=== PATIENT | male | born 1995 | race American Indian/Alaskan Native ===

== ENCOUNTER 2017-01-18 09:53 | Inpatient (IN) | payer SELFPAY ==
[2017-01-18 10:35] LABS: Basophils % (Auto) 0.3 % (0.0-1.8); Hematocrit 58.7 % (35.5-45.6); Hemoglobin 19.6 gm/dl (11.8-15.2); Mean Corpuscular HGB Conc 33 % (32-34); Mean Corpuscular Hemoglobin 28 pg (28-32); Mean Corpuscular Volume 82 fl (84-94); Platelet Count 322 K/mm3 (140-440); Red Blood Count 7.13 M/mm3 (3.65-5.03); Red Cell Distribution Width 13.9 % (13.2-15.2); White Blood Count 12.2 K/mm3 (4.5-11.0)
[2017-01-18 10:55] LABS: Albumin/Globulin Ratio 1.2 %; BUN/Creatinine Ratio 4.21; Bilirubin,Total 1.2 mg/dL (0.1-1.2); Chloride 81.5 mmol/L (98-107); Potassium 4.1 mmol/L (3.6-5.0); Total Protein 10.9 g/dL (6.3-8.2)
[2017-01-18] MEDS ORDERED: ZOFRAN ONE (11:31)
[2017-01-18] MEDS ORDERED: NACL 0.9% 1000 ML 1,000 ML ONE (11:31)
[2017-01-18] MEDS ORDERED: ZOFRAN IV ONE ×2 (11:55→13:48)
[2017-01-18] MEDS ORDERED: NACL 0.9% 1000 ML 1,000 ML IV ONE ×2 (11:56→13:48)
--- NOTE | 2017-01-18 12:29 | Emergency Department Report ---
ED General Adult HPI - General Chief complaint: Abdominal Pain Stated complaint: NAUSEA Time Seen by Provider: 01/18/17 12:24 Source: patient Mode of arrival: Ambulatory Limitations: No Limitations - History of Present Illness Initial comments: Patient states that he has had nausea vomiting since yesterday. He did note that his urine output was diminished since yesterday. He complains of tingling in his toes and fingers and some aching in general as well as some chronic lower back pain. He doesn't complain of any acute abdominal pain. He denies respiratory symptoms fever or chills. -: Gradual, days(s) Location: back Radiation: non-radiation Quality: aching Consistency: intermittent Improves with: none Worsens with: none Associated Symptoms: denies other symptoms Treatments Prior to Arrival: none - Related Data Home Medications Medication Instructions Recorded Confirmed Last Taken No Known Home Medications [No 01/18/17 01/18/17 Unknown Reported Home Medications] Allergies Allergy/AdvReac Type Severity Reaction Status Date / Time No Known Allergies Allergy Verified 01/18/17 10:09 ED Review of Systems ROS: Stated complaint: NAUSEA Other details as noted in HPI Constitutional: denies: chills, fever Eyes: denies: eye pain, eye discharge, vision change ENT: denies: ear pain, throat pain Respiratory: denies: cough, shortness of breath, wheezing Cardiovascular: denies: chest pain, palpitations Endocrine: no symptoms reported Gastrointestinal: nausea, vomiting. denies: abdominal pain, diarrhea Genitourinary: denies: urgency, dysuria Musculoskeletal: denies: back pain, joint swelling, arthralgia Skin: denies: rash, lesions Neurological: denies: headache, weakness, paresthesias Psychiatric: denies: anxiety, depression Hematological/Lymphatic: denies: easy bleeding, easy bruising ED Past Medical Hx - Past Medical History Previous Medical History?: No - Surgical History Past Surgical History?: No - Social History Smoking Status: Current Every Day Smoker Substance Use Type: None - Medications Home Medications: Home Medications Medication Instructions Recorded Confirmed Last Taken Type No Known Home Medications [No 01/18/17 01/18/17 Unknown History Reported Home Medications] ED Physical Exam - General Limitations: No Limitations General appearance: alert, anxious - Head Head exam: Present: atraumatic, normocephalic - Eye Eye exam: Present: normal appearance. Absent: scleral icterus - ENT ENT exam: Present: mucous membranes moist - Neck Neck exam: Present: normal inspection. Absent: tenderness, meningismus - Respiratory Respiratory exam: Present: normal lung sounds bilaterally. Absent: respiratory distress - Cardiovascular Cardiovascular Exam: Present: regular rate, normal rhythm. Absent: systolic murmur, diastolic murmur, rubs, gallop - GI/Abdominal GI/Abdominal exam: Present: soft, normal bowel sounds. Absent: distended, tenderness, guarding, rebound, rigid - Rectal Rectal exam: Present: deferred - Extremities Exam Extremities exam: Present: normal inspection - Back Exam Back exam: Present: normal inspection - Neurological Exam Neurological exam: Present: alert, oriented X3, CN II-XII intact. Absent: motor sensory deficit - Psychiatric Psychiatric exam: Present: normal affect, anxious - Skin Skin exam: Present: warm, dry, intact, normal color. Absent: rash ED Course Vital Signs 01/18/17 01/18/17 01/18/17 10:09 11:54 12:19 Temperature 97.6 F 98.5 F Pulse Rate 100 H 82 Respiratory 20 18 20 Rate Blood Pressure 122/93 Blood Pressure 116/66 [Left] O2 Sat by Pulse 100 100 100 Oximetry - Reevaluation(s) Reevaluation #1: Discussed with Dr. Raya. Admitted to the hospital service further care and evaluation. 01/18/17 16:47 01/18/17 16:51 ED Medical Decision Making - Lab Data Result diagrams: 01/18/17 10:22 01/18/17 10:22 Laboratory Results - last 24 hr 01/18/17 01/18/17 01/18/17 10:22 10:22 10:22 WBC 12.2 H RBC 7.13 H Hgb 19.6 H Hct 58.7 H MCV 82 L MCH 28 MCHC 33 RDW 13.9 Plt Count 322 Lymph % (Auto) 8.2 L [place] % (Auto) 5.0 Eos % (Auto) 0.0 Baso % (Auto) 0.3 Lymph # 1.0 L [place] # 0.6 Eos # 0.0 Baso # 0.0 Seg Neutrophils % 86.5 H Seg Neutrophils # 10.5 H Sodium 135 L Potassium 4.1 Chloride 81.5 L Carbon Dioxide 22 Anion Gap 36 BUN 24 H Creatinine 5.7 H Estimated GFR 12 BUN/Creatinine Ratio 4.21 Glucose 200 H Calcium 12.0 H Phosphorus 3.00 Total Bilirubin 1.20 1.20 Direct Bilirubin 0.2 Indirect Bilirubin 1.0 AST 32 33 ALT 39 38 Alkaline Phosphatase 72 70 Total Creatine Kinase 941 H CK-MB (CK-2) 10.0 H CK-MB (CK-2) Rel Index 1.0 Total Protein 10.9 H 11.0 H Albumin 6.0 H > 5.0 H Albumin/Globulin Ratio 1.2 0.0 Lipase 44 Critical care attestation.: If time is entered above; I have spent that time in minutes in the direct care of this critically ill patient, excluding procedure time. ED Disposition Clinical Impression: Acute renal failure Qualifiers: Acute renal failure type: unspecified Qualified Code(s): N17.9 - Acute kidney failure, unspecified Disposition: OP ADMIT IP TO THIS HOSP Is pt being admited?: Yes Does the pt Need Aspirin: No Condition: Stable Referrals: PRIMARY CARE, [Primary Care Provider] - 3-5 Days Time of Disposition: 16:54
--- NOTE | 2017-01-18 13:23 | Ultrasound Report ---
ULTRASOUND ABDOMEN COMPLETE: ULTRASOUND RENAL BILATERAL Technique: Transabdominal ultrasound with color Doppler interrogation. History: abdominal pain, renal failure. Findings: The liver is normal size, contour and echotexture. The gallbladder dimensions are within normal limits without intraluminal stone, wall thickening, or pericholecystic fluid. The CBD is normal caliber. The visualized portions of the pancreas including the head and proximal body are within normal limits. The right kidney measures 9.9 cm. The left kidney measures 9.3 cm. Both kidneys are slightly echogenic but no evidence for cyst, mass, calculus or hydronephrosis. The spleen and aorta are within normal limits. No aneurysmal dilatation is noted. No ascites. The bladder is unremarkable. IMPRESSION: Slightly echogenic kidneys consistent with nonspecific renal parenchymal disease. Otherwise, unremarkable exam of the abdomen.
--- NOTE | 2017-01-18 14:56 | XRay Report ---
CHEST ONE VIEW INDICATION: Difficulty breathing. COMPARISON: None similar. FINDINGS: Portable, single, frontal chest radiograph demonstrates normal cardiomediastinal silhouette. Clear lungs. Unremarkable bones. CONCLUSION: No acute disease in the chest. Thank you for the opportunity to participate in this patient's care.
[2017-01-18 15:00] LABS: Alanine Aminotransferase 38 units/L (7-56); Alkaline Phosphatase 70 units/L (35-129); Bilirubin,Direct 0.2 mg/dL (0-0.2); Creatine Kinase 941 units/L (55-170)
[2017-01-18 15:25] LABS: Albumin > 5.0 g/dL (3.9-5)
[2017-01-18] MEDS ORDERED: PEPCID IV ONE ×2 (16:12→16:39)
[2017-01-18] MEDS ORDERED: PERCOCET 5/325 PO PRN (19:29)
[2017-01-18] MEDS ORDERED: DILAUDID IV PRN (19:29)
[2017-01-18] MEDS ORDERED: TYLENOL PO PRN (19:29)
[2017-01-18] MEDS ORDERED: DULCOLAX PR PRN (19:29)
[2017-01-18] MEDS ORDERED: MILK OF MAGNESIA PO PRN (19:29)
[2017-01-18] MEDS ORDERED: AMBIEN PO PRN (19:29)
[2017-01-18] MEDS ORDERED: ZOFRAN IV PRN (19:29)
--- NOTE | 2017-01-18 19:29 | History and Physical Report ---
History of Present Illness Date of examination: 01/18/17 Date of admission: 01/18/17 Chief complaint: CC Nausea and vomiting for 1 day History of present illness: - History of Present Illness Initial comments: Patient states that he has had nausea vomiting since yesterday. He did note that his urine output was diminished since yesterday. He complains of tingling in his toes and fingers and some aching in general as well as some chronic lower back pain. He doesn't complain of any acute abdominal pain. He denies respiratory symptoms fever or chills. -: Gradual, days(s) Location: back Radiation: non-radiation Quality: aching Consistency: intermittent Improves with: none Worsens with: none Associated Symptoms: denies other symptoms Treatments Prior to Arrival: none Review of Systems Constitutional: denies: chills, fever Eyes: denies: eye pain, eye discharge, vision change ENT: denies: ear pain, throat pain Respiratory: denies: cough, shortness of breath, wheezing Cardiovascular: denies: chest pain, palpitations Endocrine: no symptoms reported Gastrointestinal: nausea, vomiting. abdominal pain, denies: diarrhea Genitourinary: denies: urgency, dysuria Musculoskeletal: denies: back pain, joint swelling, arthralgia Skin: denies: rash, lesions Neurological: denies: headache, weakness, paresthesias Psychiatric: denies: anxiety, depression Hematological/Lymphatic: denies: easy bleeding, easy bruising ED Past Medical Hx - Past Medical History Previous Medical History?: No - Surgical History Past Surgical History?: No - Social History Smoking Status: Current Every Day Smoker Substance Use Type: None - Medications Home Medications: Home Medications Medication Instructions Recorded Confirmed Last Taken Type No Known Home Medications [No 01/18/17 01/18/17 Unknown History Reported Home Medications] Medications and Allergies Allergies Allergy/AdvReac Type Severity Reaction Status Date / Time No Known Allergies Allergy Verified 01/18/17 10:09 Home Medications Medication Instructions Recorded Confirmed Last Taken Type No Known Home Medications [No 01/18/17 01/18/17 Unknown History Reported Home Medications] Exam - Constitutional Vitals: Temp Pulse Resp BP Pulse Ox 98.5 F 82 20 116/66 100 01/18/17 12:19 01/18/17 12:19 01/18/17 12:19 01/18/17 12:19 01/18/17 12:19 General appearance: Present: no acute distress, well-nourished - EENT Eyes: Present: PERRL ENT: hearing intact, clear oral mucosa - Neck Neck: Present: supple, normal ROM - Respiratory Respiratory effort: normal Respiratory: bilateral: CTA - Cardiovascular Heart rate: 80 Rhythm: regular Heart Sounds: Present: S1 & S2. Absent: rub, click - Extremities Extremities: no ischemia, pulses intact, pulses symmetrical, No edema Peripheral Pulses: within normal limits - Abdominal General gastrointestinal: Present: soft, non-tender, non-distended, normal bowel sounds Male genitourinary: Present: normal - Rectal Rectal Exam: deferred - Integumentary Integumentary: Present: clear, warm, dry - Musculoskeletal Musculoskeletal: gait normal, strength equal bilaterally - Psychiatric Psychiatric: appropriate mood/affect, intact judgment & insight - Neurologic Neurologic: CNII-XII intact, moves all extremities - Allied Health Allied health notes reviewed: nursing, case management Results - Labs CBC & Chem 7: 01/19/17 04:08 01/19/17 04:08 Labs: Laboratory Last Values WBC 12.2 K/mm3 (4.5-11.0) H 01/18/17 10:22 RBC 7.13 M/mm3 (3.65-5.03) H 01/18/17 10:22 Hgb 19.6 gm/dl (11.8-15.2) H 01/18/17 10:22 Hct 58.7 % (35.5-45.6) H 01/18/17 10:22 MCV 82 fl (84-94) L 01/18/17 10:22 MCH 28 pg (28-32) 01/18/17 10:22 MCHC 33 % (32-34) 01/18/17 10:22 RDW 13.9 % (13.2-15.2) 01/18/17 10:22 Plt Count 322 K/mm3 (140-440) 01/18/17 10:22 Lymph % (Auto) 8.2 % (13.4-35.0) L 01/18/17 10:22 [place] % (Auto) 5.0 % (0.0-7.3) 01/18/17 10:22 Eos % (Auto) 0.0 % (0.0-4.3) 01/18/17 10:22 Baso % (Auto) 0.3 % (0.0-1.8) 01/18/17 10:22 Lymph # 1.0 K/mm3 (1.2-5.4) L 01/18/17 10:22 [place] # 0.6 K/mm3 (0.0-0.8) 01/18/17 10:22 Eos # 0.0 K/mm3 (0.0-0.4) 01/18/17 10:22 Baso # 0.0 K/mm3 (0.0-0.1) 01/18/17 10:22 Seg Neutrophils % 86.5 % (40.0-70.0) H 01/18/17 10:22 Seg Neutrophils # 10.5 K/mm3 (1.8-7.7) H 01/18/17 10:22 Sodium 135 mmol/L (137-145) L 01/18/17 10:22 Potassium 4.1 mmol/L (3.6-5.0) 01/18/17 10:22 Chloride 81.5 mmol/L (98-107) L 01/18/17 10:22 Carbon Dioxide 22 mmol/L (22-30) 01/18/17 10:22 Anion Gap 36 mmol/L 01/18/17 10:22 BUN 24 mg/dL (9-20) H 01/18/17 10:22 Creatinine 5.7 mg/dL (0.8-1.5) H 01/18/17 10:22 Estimated GFR 12 ml/min 01/18/17 10:22 BUN/Creatinine Ratio 4.21 % 01/18/17 10:22 Glucose 200 mg/dL (75-100) H 01/18/17 10:22 Calcium 12.0 mg/dL (8.4-10.2) H 01/18/17 10:22 Phosphorus 3.00 mg/dL (2.5-4.5) 01/18/17 10:22 Total Bilirubin 1.20 mg/dL (0.1-1.2) 01/18/17 10:22 Direct Bilirubin 0.2 mg/dL (0-0.2) 01/18/17 10:22 Indirect Bilirubin 1.0 mg/dL 01/18/17 10:22 AST 33 units/L (5-40) 01/18/17 10:22 ALT 38 units/L (7-56) 01/18/17 10:22 Alkaline Phosphatase 70 units/L (35-129) 01/18/17 10:22 Total Creatine Kinase 941 units/L (55-170) H 01/18/17 10:22 CK-MB (CK-2) 10.0 ng/mL (0.0-4.0) H 01/18/17 10:22 CK-MB (CK-2) Rel Index 1.0 (0-4) 01/18/17 10:22 Total Protein 11.0 g/dL (6.3-8.2) H 01/18/17 10:22 Albumin > 5.0 g/dL (3.9-5) H 01/18/17 10:22 Albumin/Globulin Ratio 0.0 % 01/18/17 10:22 Lipase 44 units/L (13-60) 01/18/17 10:22 Short CBC 01/18/17 01/19/17 Range/Units 10:22 04:08 WBC 12.2 H 12.4 H (4.5-11.0) K/mm3 Hgb 19.6 H 16.8 H (11.8-15.2) gm/dl Hct 58.7 H 50.4 H D (35.5-45.6) % Plt Count 322 241 (140-440) K/mm3 BMP 01/18/17 01/19/17 10:22 04:08 Sodium 135 L 139 Potassium 4.1 3.9 Chloride 81.5 L 92.9 L Carbon Dioxide 22 25 BUN 24 H 34 H Creatinine 5.7 H 3.9 H Glucose 200 H 124 H Calcium 12.0 H 9.8 D Cardiac Enzymes 01/18/17 Range/Units 10:22 Total Creatine Kinase 941 H (55-170) units/L CK-MB (CK-2) 10.0 H (0.0-4.0) ng/mL Liver Function 01/18/17 01/18/17 01/19/17 Range/Units 10:22 10:22 04:08 Total Bilirubin 1.20 1.20 1.20 (0.1-1.2) mg/dL Direct Bilirubin 0.2 (0-0.2) mg/dL AST 32 33 34 (5-40) units/L ALT 39 38 27 (7-56) units/L Alkaline Phosphatase 72 70 51 (35-129) units/L Albumin 6.0 H > 5.0 H 4.6 (3.9-5) g/dL Urine 01/18/17 Range/Units 20:05 Urine Color [place] (Yellow) Urine pH 5.0 (5.0-7.0) Ur Specific [place] 1.023 (1.003-1.030) Urine Protein >500 (Negative) mg/dL Urine Glucose (UA) 50 (Negative) mg/dL - Imaging and Cardiology EKG: report reviewed Chest x-ray: report reviewed US - abdomen: report reviewed (Slightly Echogenic kidneys Size near normal) Assessment and Plan Advance Directives: Yes (Full code) VTE prophylaxis?: Chemical Plan of care discussed with patient/family: Yes - Patient Problems (1) Acute renal failure Current Visit: Yes Status: Acute Qualifiers: Acute renal failure type: with acute tubular necrosis Qualified Code(s): N17.0 - Acute kidney failure with tubular necrosis Plan to address problem: More in favor of acute on chronic renal failure IV fluids for now Nephrology consult initiated in case he needs Renal HD (2) Polycythemia Current Visit: Yes Status: Acute Plan to address problem: Probably sec to volume depletion Was vomiting with Nausea which maybe sec to Elevated creatine IV fluids for now (3) Hypercalcemia Current Visit: Yes Status: Acute Plan to address problem: Maybe sec to Volume contaction IV fluids for now. (4) DVT prophylaxis Current Visit: Yes Status: Acute Plan to address problem: on lovenox
[2017-01-18 20:09] LABS: Urine Drugs of Abuse Note Disclamer
[2017-01-18 20:33] LABS: Bilirubin,Urine NEG (Negative); Blood,Urine LG (Negative); Granular Casts,Urine 29 /LPF; Ketones,Urine TR mg/dL (Negative); Leukocyte Esterase,Urine NEG (Negative); Mucus,Urine 3+ /HPF; Nitrite,Urine NEG (Negative)
[2017-01-18 20:34] LABS: Protein,Urine >500 mg/dL (Negative)
[2017-01-18] MEDS: D5/0.45NS 1,000 ML IV SCH (21:32)
[2017-01-18] MEDS: HEPARIN SUB-Q SCH (21:33)
[2017-01-18] MEDS ORDERED: PEPCID IV SCH (22:00)
[2017-01-18] MEDS: ALUM-MAG HYDROX-SIMETH 200-200-20MG/5ML PO PRN (22:53)
[2017-01-18] MEDS: NOVOLOG SUB-Q SCH (23:00)
[2017-01-19 04:22] LABS: Basophils % (Auto) 0.2 % (0.0-1.8); Hematocrit 50.4 % (35.5-45.6); Hemoglobin 16.8 gm/dl (11.8-15.2); Mean Corpuscular HGB Conc 33 % (32-34); Mean Corpuscular Hemoglobin 28 pg (28-32); Mean Corpuscular Volume 83 fl (84-94); Platelet Count 241 K/mm3 (140-440); Red Blood Count 6.06 M/mm3 (3.65-5.03); Red Cell Distribution Width 14.2 % (13.2-15.2); White Blood Count 12.4 K/mm3 (4.5-11.0)
[2017-01-19 04:54] LABS: Albumin 4.6 g/dL (3.9-5); Albumin/Globulin Ratio 1.3 %; BUN/Creatinine Ratio 8.71; Bilirubin,Total 1.2 mg/dL (0.1-1.2); Calcium 9.8 mg/dL (8.4-10.2); Total Protein 8.2 g/dL (6.3-8.2)
[2017-01-19 04:55] LABS: Chloride 92.9 mmol/L (98-107); Potassium 3.9 mmol/L (3.6-5.0)
[2017-01-19] MEDS: D5/0.45NS 1,000 ML IV SCH (06:58)
[2017-01-19] MEDS: NOVOLOG SUB-Q SCH ×4 (08:07→22:11)
[2017-01-19] MEDS: HEPARIN SUB-Q SCH ×2 (09:14→22:08)
--- NOTE | 2017-01-19 09:21 | Consultation ---
History of Present Illness - Reason for Consult Consult date: 01/19/17 acute renal failure - History of Present Illness Patient is a 21 year old AAM without any significant medical history came to the ER with one day h/o intractable N & V. He had several episodes of vomiting at home. His PO intake has been poor and did noticed that his urine output was diminished. Associated symptoms include tingling in his toes and fingers and bodyache. Patient denies any diarrhea, abdominal pain, fever, dysuria or hematuria. His creatinine was 5.7 on admission and has improved to 2.6 today. Medications and Allergies Allergies Allergy/AdvReac Type Severity Reaction Status Date / Time No Known Allergies Allergy Verified 01/18/17 10:09 Home Medications Medication Instructions Recorded Confirmed Last Taken Type No Known Home Medications [No 01/18/17 01/18/17 Unknown History Reported Home Medications] Active Meds: Active Medications Acetaminophen (Tylenol) 650 mg PO Q4H PRN PRN Reason: Pain MILD(1-3)/Fever >100.5/ARCEO Al Hydrox/Mg Hydrox/Simethicone (Alum-Mag Hydrox-Simeth 477-105-57dm/5ml) 30 ml PO Q6HR PRN PRN Reason: Indigestion Last Admin: 01/18/17 22:53 Dose: 30 ml Bisacodyl (Dulcolax) 10 mg NM QDAY PRN PRN Reason: Constipation unrelieved by MOM Famotidine (Pepcid) 20 mg IV DAILY NNAMDI Heparin Sodium (Porcine) (Heparin) 5,000 unit SUB-Q Q12HR NNAMDI Last Admin: 01/19/17 09:14 Dose: 5,000 unit Hydromorphone HCl (Dilaudid) 0.5 mg IV Q3H PRN PRN Reason: Pain , Severe (7-10) Dextrose/Sodium Chloride (D5/0.45ns) 1,000 mls @ 100 mls/hr IV DIRECT NNAMDI Last Admin: 01/19/17 06:58 Dose: 100 mls/hr Insulin Aspart (Novolog) 0 units SUB-Q ACHS NNAMDI PRN Reason: Protocol Last Admin: 01/19/17 08:07 Dose: Not Given Magnesium Hydroxide (Milk Of Magnesia) 30 ml PO Q4H PRN PRN Reason: Constipation Ondansetron HCl (Zofran) 4 mg IV Q8H PRN PRN Reason: N/V unrelieved by Reglan Oxycodone/Acetaminophen (Percocet 5/325) 1 tab PO Q6H PRN PRN Reason: Pain, Moderate (4-6) Zolpidem Tartrate (Ambien) 5 mg PO QHS PRN PRN Reason: Insomnia Last Admin: 01/18/17 22:53 Dose: 5 mg Review of Systems Constitutional: no weight loss, no weight gain, no fever, no chills, no anorexia Ears, nose, mouth and throat: no sinus pain, no epistaxis Cardiovascular: no chest pain, no orthopnea, no syncope, no lightheadedness, no shortness of breath, no high blood pressure Respiratory: no cough Gastrointestinal: nausea, vomiting, no abdominal pain, no diarrhea, no hematemesis, no melena Genitourinary Male: no dysuria, no hematuria Rectal: no bleeding Musculoskeletal: no neck stiffness Integumentary: no rash, no wounds, no jaundice Neurological: tingling, no transient paralysis, no paralysis, no seizures, no syncope Psychiatric: no disorientation Endocrine: no weight change Hematologic/Lymphatic: no easy bruising, no easy bleeding Exam - Vital Signs Vital signs: Vital Signs Temp Pulse Resp BP Pulse Ox 97.6 F 100 H 20 122/93 100 01/18/17 10:09 01/18/17 10:09 01/18/17 10:09 01/18/17 10:09 01/18/17 10:09 - General Appearance General appearance: well-developed, well-nourished, appears stated age, other ( no distress) EENT: ATNC, PERRL, mucous membranes moist, hearing intact, vision intact Neck: Present: neck supple Respiratory: Clear to Ascultation Heart: regular, S1S2, no murmurs Gastrointestinal: Present: normoactive bowel sounds. Absent: tenderness, distended Integumentary: no rash Neurologic: no focal deficit, no asterixis, alert and oriented x3, CN 3-12 intact Musculoskeletal: Present: other (no edema) Psychiatric: mood/affect appropriate, cooperative Results - Lab Results 01/20/17 04:38 01/20/17 04:38 Most recent lab results Calcium 9.8 mg/dL (8.4-10.2) D 01/19/17 04:08 Phosphorus 3.00 mg/dL (2.5-4.5) 01/18/17 10:22 - Image Kidney/bladder ultrasound: report reviewed Assessment and Plan - Patient Problems (1) ARNIE (acute kidney injury) Current Visit: Yes Status: Acute Plan to address problem: Hemodynamic ARNIE in the setting of volume depletion. Renal function is improving. Continue IV fluids. (2) Hypercalcemia Current Visit: Yes Status: Acute Plan to address problem: Secondary to volume depletion. Improved now. (3) Volume depletion Current Visit: Yes Status: Acute Plan to address problem: Continue IV fluids. (4) Intractable vomiting with nausea Current Visit: Yes Status: Acute Qualifiers: Vomiting type: V Plan to address problem: Improved.
[2017-01-19] MEDS ORDERED: PEPCID IV SCH (10:00)
--- NOTE | 2017-01-19 10:07 | Admit Criteria Form ---
Admission Criteria Documentation: UROLOGIC DISEASE G Clinical Indications for Admission to Inpatient Care (Place ' X' for any and all applicable criteria): Hospital admission is needed for appropriate care of the patient because of 1 or more of the following: [ ]I. New-onset Reduced urine output, or hydronephrosis remaining after emergency or observation level care (as appropriate ) [X ]II. Renal disease needing inpatient care indicated by 1 or more of the following(2)(3)(4): [X ]a) Acute renal failure [ ]b) Significant uremic complications [ ]c) Acute kidney injury (that does not qualify as Acute renal failure ) requiring inpatient care indicated by ALL of the following(5)(6)(7)(8) (9): [ ]i) Worsening clinical status (eg, rising creatinine) despite outpatient and observation care treatment (eg, hydration) [ ]ii) Acute kidney injury indicated by 1 or more of the following: [ ]1) 2-fold or more rise in serum creatinine from baseline [ ]2) Reduction of more than 50% in estimated glomerular filtration rate from baseline [ ]3) Urine output less than 0.5 mL/kg/hr for 12 hours despite adequate volume status [ ]d) Systemic cause (eg, Goodpasture syndrome ) needing inpatient care [ ]e) Rapidly progressive renal disease needing inpatient care (eg, plasmapheresis, immunosuppression ) Anasarca needing inpatient care [ ]f) Hemoptysis [ ]g) Hemolysis, thrombosis, or infraction [ ]h) Anasarca needing inpatient care [ ]III. New-onset or uncontrolled nephrogenic diabetes insipidus [ ]IV. Urologic infection requiring inpatient care as indicated by 1 or more of the following(10)(11)(12): [ ]a) Hemodynamic instability [ ]b) Dehydration that is severe or persistent [ ]c) Failure of outpatient treatment [ ]d) Mayi's gangrene [ ]e) Urinary obstruction [ ]f) Immunocompromised state (eg, chronic steroid use ) [ ]g) Known renal or urologic abnormalities(eg, indwelling catheter, structural abnormalities ) [ ]h) Recent urologic manipulation or procedure Urinary obstruction [ ]i) Abscess requiring drainage Immunocompromised state [ ]V. Acute urinary retention requiring inpatient management as indicated by ANY ONE of the following(1)(13): [ ]a) Retention cannot be alleviated via emergency or observation level care (eg, urinary catheter placement) [ ]b) Hemodynamic instability [ ]c) Acute neurologic etiology (eg, cauda equina) [ ]d) Dehydration or other complications not manageable with emergency or observation level care [ ]e) Acute kidney injury (that does not qualify as Acute renal failure ) requiring inpatient care indicated by ALL of the following(5)(6)(7)(8) (9): [ ]i) Acute kidney injury indicated by ANY ONE of the following: [ ]1) 2-fold or more rise in serum creatinine from baseline [ ]2) Reduction of more than 50% in estimated glomerular filtration rate from baseline [ ]ii) Worsening clinical status (eg, rising creatinine) despite outpatient and observation care treatment (eg, hydration) [ ]. Gross hematuria requiring inpatient management as indicated by ANY ONE of the following(1)(2): [ ]a) Evidence of renal obstruction [ ]b) Reduced urine output [ ]c) Clot retention after urinary catheterization and irrigation [ ]d) Severe Anemia [ ]e) Systemic cause needing inpatient treatment (eg, Goodpasture syndrome) [ ]VII. Priapism not responsive to emergency or observation care treatment [ ]VII. Scrotal, testicular, or epididymal disorder requiring inpatient care indicated by 1 or more of the following(1)(14)(15)(16): [ ]a) Scrotal edema or infection not manageable with emergency or observation level care [ ]b) Orchitis not manageable with emergency or observation level care [ ]c) Epididymitis not manageable with emergency or observation level of care [ ]d) Other scrotal, testicular, or epididymal disorder (eg, infection, inflammation) not manageable with emergency or observation level care [ ]IX. Complications of transplanted kidney indicated by 1 or more of the following [ ]a) Acute graft rejection requiring inpatient management (eg, intravenous immunosuppression) [ ]b) Acute kidney injury indicated by ALL of the following i) Acute kidney injury indicated by 1 or more of the following 1) 2-fold or more rise in serum creatinine from baseline 2) Reduction of more than 50% in estimated glomerular filtration rate from baseline 3) Urine output less than 0.5 mL/kg/hr for 12 hours despite adequate volume status ii) Kidney injury too severe or not responsive to outpatient and observation care treatment (eg, hydration) [ ]c) Infection requiring inpatient management (eg, Hemodynamic instability, need for intravenous antimicrobial treatment) [ ]d) Other complication of transplanted kidney requiring patient management (eg, severe diarrhea leading to malabsorption) [ ]X. Trauma to renal, genital, or urologic system requiring inpatient medical care [ ]XI. Urologic Disease condition, symptom, or finding for which emergency and observation care have failed or are not considered appropriate. The original [employer] content created by [employer] has been revised. The portions of the content which have been revised are identified through the use of italic text or in bold, and [facility] has neither reviewed nor approved the modified material. All other unmodified content is copyright [facility]. Please see references footnoted in the original [facility] edition 2016 Admission Criteria Met: Yes
[2017-01-19 17:15] LABS: BUN/Creatinine Ratio 11.53; Calcium 9.6 mg/dL (8.4-10.2); Chloride 90.5 mmol/L (98-107); Potassium 3.7 mmol/L (3.6-5.0)
[2017-01-19] MEDS: ALUM-MAG HYDROX-SIMETH 200-200-20MG/5ML PO PRN (18:13)
--- NOTE | 2017-01-19 19:20 | Progress Note ---
Assessment and Plan Assessment and plan: 21 yo AAM with no past medical history presented for intractable nausea and vomiting x1 day 1. Acute renal failure Likely due to vasomotor nephropathy secondary to dehydration with volume depletion Continue IV fluids Improving Monitoring BUN/creatinine and electrolytes Nephrology following 2. Hypercalcemia Secondary to dehydration and acute kidney injury Continue IV fluids 3. Rhabdomyolysis Continue IV fluids and trend CPK 4. Polycythemia Likely secondary to dehydration and volume depletion Monitor 5. Dehydration Secondary to vomiting Continue IV fluids 6. Nausea and vomiting with volume depletion Continue IV fluids 7. Drug use Denied any drug use, but UDS positive for marijuana Counseling regarding importance of quitting 8. Tobacco abuse Counseling regarding importance of quitting 9. DVT prophylaxis Heparin subcutaneous History Interval history: feeling better, weak, but no specific complaints Hospitalist Physical - Constitutional Vitals: Temp Pulse Resp BP Pulse Ox 97.7 F 71 18 109/59 100 01/19/17 11:00 01/19/17 11:00 01/19/17 11:00 01/19/17 11:00 01/19/17 11:00 General appearance: Present: no acute distress, well-nourished - EENT Eyes: Present: PERRL, EOM intact. Absent: scleral icterus, conjunctival injection - Neck Neck: Present: supple, normal ROM. Absent: masses or JVD - Respiratory Respiratory effort: normal Respiratory: bilateral: CTA, negative: rhonchi, wheezing - Cardiovascular Rhythm: regular Heart Sounds: Present: S1 & S2. Absent: systolic murmur - Extremities Extremities: no ischemia - Abdominal General gastrointestinal: soft, non-tender, non-distended, normal bowel sounds - Psychiatric Psychiatric: cooperative - Neurologic Neurologic: CNII-XII intact, no focal deficits Results - Labs CBC & Chem 7: 01/20/17 04:38 01/21/17 04:35 Labs: Laboratory Last Values WBC 12.4 K/mm3 (4.5-11.0) H 01/19/17 04:08 RBC 6.06 M/mm3 (3.65-5.03) H 01/19/17 04:08 Hgb 16.8 gm/dl (11.8-15.2) H 01/19/17 04:08 Hct 50.4 % (35.5-45.6) H D 01/19/17 04:08 MCV 83 fl (84-94) L 01/19/17 04:08 MCH 28 pg (28-32) 01/19/17 04:08 MCHC 33 % (32-34) 01/19/17 04:08 RDW 14.2 % (13.2-15.2) 01/19/17 04:08 Plt Count 241 K/mm3 (140-440) 01/19/17 04:08 Lymph % (Auto) 8.8 % (13.4-35.0) L 01/19/17 04:08 Lee % (Auto) 13.8 % (0.0-7.3) H 01/19/17 04:08 Eos % (Auto) 0.0 % (0.0-4.3) 01/19/17 04:08 Baso % (Auto) 0.2 % (0.0-1.8) 01/19/17 04:08 Lymph # 1.1 K/mm3 (1.2-5.4) L 01/19/17 04:08 Lee # 1.7 K/mm3 (0.0-0.8) H 01/19/17 04:08 Eos # 0.0 K/mm3 (0.0-0.4) 01/19/17 04:08 Baso # 0.0 K/mm3 (0.0-0.1) 01/19/17 04:08 Seg Neutrophils % 77.2 % (40.0-70.0) H 01/19/17 04:08 Seg Neutrophils # 9.6 K/mm3 (1.8-7.7) H 01/19/17 04:08 Sodium 136 mmol/L (137-145) L 01/19/17 13:00 Potassium 3.7 mmol/L (3.6-5.0) 01/19/17 13:00 Chloride 90.5 mmol/L (98-107) L 01/19/17 13:00 Carbon Dioxide 28 mmol/L (22-30) 01/19/17 13:00 Anion Gap 21 mmol/L 01/19/17 13:00 BUN 30 mg/dL (9-20) H 01/19/17 13:00 Creatinine 2.6 mg/dL (0.8-1.5) H 01/19/17 13:00 Estimated GFR 37 ml/min 01/19/17 13:00 BUN/Creatinine Ratio 11.53 % 01/19/17 13:00 Glucose 85 mg/dL (75-100) 01/19/17 13:00 POC Glucose 102 (70-105) 01/19/17 18:02 Hemoglobin A1c 5.5 % (4-6) 01/18/17 10:22 Calcium 9.6 mg/dL (8.4-10.2) 01/19/17 13:00 Phosphorus 3.00 mg/dL (2.5-4.5) 01/18/17 10:22 Total Bilirubin 1.20 mg/dL (0.1-1.2) 01/19/17 04:08 Direct Bilirubin 0.2 mg/dL (0-0.2) 01/18/17 10:22 Indirect Bilirubin 1.0 mg/dL 01/18/17 10:22 AST 34 units/L (5-40) 01/19/17 04:08 ALT 27 units/L (7-56) 01/19/17 04:08 Alkaline Phosphatase 51 units/L (35-129) 01/19/17 04:08 Total Creatine Kinase 941 units/L (55-170) H 01/18/17 10:22 CK-MB (CK-2) 10.0 ng/mL (0.0-4.0) H 01/18/17 10:22 CK-MB (CK-2) Rel Index 1.0 (0-4) 01/18/17 10:22 Total Protein 8.2 g/dL (6.3-8.2) D 01/19/17 04:08 Albumin 4.6 g/dL (3.9-5) 01/19/17 04:08 Albumin/Globulin Ratio 1.3 % 01/19/17 04:08 Lipase 44 units/L (13-60) 01/18/17 10:22 Urine Color Yeimi (Yellow) 01/18/17 20:05 Urine Turbidity Turbid (Clear) 01/18/17 20:05 Urine pH 5.0 (5.0-7.0) 01/18/17 20:05 Ur Specific [place] 1.023 (1.003-1.030) 01/18/17 20:05 Urine Protein >500 mg/dL (Negative) 01/18/17 20:05 Urine Glucose (UA) 50 mg/dL (Negative) 01/18/17 20:05 Urine Ketones Tr mg/dL (Negative) 01/18/17 20:05 Urine Blood Lg (Negative) 01/18/17 20:05 Urine Nitrite Neg (Negative) 01/18/17 20:05 Urine Bilirubin Neg (Negative) 01/18/17 20:05 Urine Urobilinogen 2.0 mg/dL (<2.0) 01/18/17 20:05 Ur Leukocyte Esterase Neg (Negative) 01/18/17 20:05 Urine WBC (Auto) 8.0 /HPF (0.0-6.0) H 01/18/17 20:05 Urine RBC (Auto) 2.0 /HPF (0.0-6.0) 01/18/17 20:05 Calcium Oxalate Crystal 2+ 01/18/17 20:05 Amorphous Crystals 1+ 01/18/17 20:05 Hyaline Casts 10 /LPF 01/18/17 20:05 Granular Casts 29 /LPF 01/18/17 20:05 Urine Mucus 3+ /HPF 01/18/17 20:05 Urine Opiates Screen Presumptive negative 01/18/17 20:05 Urine Methadone Screen Presumptive negative 01/18/17 20:05 Ur Barbiturates Screen Presumptive negative 01/18/17 20:05 Ur Phencyclidine Scrn Presumptive negative 01/18/17 20:05 Ur Amphetamines Screen Presumptive negative 01/18/17 20:05 U Benzodiazepines Scrn Presumptive negative 01/18/17 20:05 Urine Cocaine Screen Presumptive negative 01/18/17 20:05 U Marijuana (THC) Screen Presumptive positive 01/18/17 20:05 Drugs of Abuse Note Disclamer 01/18/17 20:05
[2017-01-20 05:15] LABS: Hematocrit 46.8 % (35.5-45.6); Hemoglobin 15.3 gm/dl (11.8-15.2); Mean Corpuscular HGB Conc 33 % (32-34); Mean Corpuscular Hemoglobin 28 pg (28-32); Mean Corpuscular Volume 84 fl (84-94); Platelet Count 208 K/mm3 (140-440); Red Blood Count 5.59 M/mm3 (3.65-5.03); Red Cell Distribution Width 14.3 % (13.2-15.2); White Blood Count 6.5 K/mm3 (4.5-11.0)
[2017-01-20 05:35] LABS: Alanine Aminotransferase 27 units/L (7-56); Albumin 4.1 g/dL (3.9-5); Albumin/Globulin Ratio 1.2 %; Alkaline Phosphatase 45 units/L (35-129); Anion Gap 18 mmol/L; BUN/Creatinine Ratio 16.15; Blood Urea Nitrogen 21 mg/dL (9-20); Calcium 9.4 mg/dL (8.4-10.2); Carbon Dioxide 28 mmol/L (22-30); Chloride 93.2 mmol/L (98-107); Creatine Kinase 1133 units/L (55-170); Glucose 83 mg/dL (75-100); Potassium 3.8 mmol/L (3.6-5.0); Sodium 135 mmol/L (137-145); Total Protein 7.4 g/dL (6.3-8.2)
[2017-01-20 06:10] LABS: Basophils % (Manual) 0 % (0.0-1.8); Blastocytes % (Manual) 0 %
[2017-01-20 06:11] LABS: Anisocytosis 1+; Diff Status Complete; Hypochromasia 1+
[2017-01-20] MEDS: D5/0.45NS 1,000 ML IV SCH ×2 (06:21→19:51)
[2017-01-20] MEDS: NOVOLOG SUB-Q SCH ×4 (08:17→22:47)
--- NOTE | 2017-01-20 08:44 | Progress Note ---
Assessment and Plan - Patient Problems (1) ARNIE (acute kidney injury) Current Visit: Yes Status: Acute Plan to address problem: Hemodynamic ARNIE in the setting of volume depletion. Renal function has improved. Advised to drink adequate fluids. Will sign off. (2) Hypercalcemia Current Visit: Yes Status: Acute Plan to address problem: Secondary to volume depletion. Improved now. (3) Volume depletion Current Visit: Yes Status: Acute Plan to address problem: Continue IV fluids. (4) Intractable vomiting with nausea Current Visit: Yes Status: Acute Qualifiers: Vomiting type: V Plan to address problem: Improved. Subjective Date of service: 01/20/17 Interval history: Patient is feeling better. Objective - Vital Signs Vital signs: Vital Signs - 12hr 01/19/17 01/19/17 01/19/17 21:01 22:00 22:37 Temperature 97.9 F Pulse Rate 69 Respiratory 22 18 18 Rate Respiratory 18 Rate [Bilateral Hip] Blood Pressure 125/65 O2 Sat by Pulse 98 Oximetry 01/19/17 01/20/17 01/20/17 23:37 00:35 04:00 Temperature 98.7 F 98.4 F Pulse Rate 65 63 Respiratory 17 20 20 Rate Respiratory Rate [Bilateral Hip] Blood Pressure 108/50 115/56 O2 Sat by Pulse 97 99 Oximetry - General Appearance General appearance: well-developed, well-nourished, appears stated age, other ( no distress) EENT: ATNC, PERRL, mucous membranes moist, hearing intact, vision intact Neck: supple Respiratory: Present: Clear to Ascultation Cardiology: regular, S1S2, no murmurs Gastrointestinal: normoactive bowel sounds, no tenderness, no distended Integumentary: no rash Neurologic: no focal deficit, no asterixis, alert and oriented x3, CN 3-12 intact Musculoskeletal: other (no edema) Psychiatric: mood/affect appropriate, cooperative - Lab 01/20/17 04:38 01/20/17 04:38 Most recent lab results Calcium 9.4 mg/dL (8.4-10.2) 01/20/17 04:38 Phosphorus 3.30 mg/dL (2.5-4.5) 01/20/17 04:38 Magnesium 2.30 mg/dL (1.7-2.3) 01/20/17 04:38
[2017-01-20] MEDS: HEPARIN SUB-Q SCH ×2 (09:42→22:48)
[2017-01-20] MEDS: PEPCID IV SCH ×2 (09:43→22:50)
--- NOTE | 2017-01-20 20:35 | Progress Note ---
Assessment and Plan Assessment and plan: 21 yo AAM with no past medical history presented for intractable nausea and vomiting x1 day 1. Acute renal failure Likely due to vasomotor nephropathy secondary to dehydration with volume depletion Continue IV fluids Improving Monitoring BUN/creatinine and electrolytes Nephrology following 2. Hypercalcemia Secondary to dehydration and acute kidney injury Resolved with IV fluids 3. Rhabdomyolysis CPK trending down Continue IV fluids 4. Polycythemia Likely secondary to dehydration and volume depletion Monitor 5. Dehydration Secondary to vomiting Continue IV fluids 6. Nausea and vomiting with volume depletion Resolved 7. Drug use Denied any drug use, but UDS positive for marijuana Counseling regarding importance of quitting 8. Tobacco abuse Counseling regarding importance of quitting 9. DVT prophylaxis Heparin subcutaneous History Interval history: doing well, no complaints Hospitalist Physical - Constitutional Vitals: Temp Pulse Resp BP Pulse Ox 98.1 F 72 20 134/81 98 01/20/17 16:00 01/20/17 19:14 01/20/17 16:00 01/20/17 16:00 01/20/17 16:00 General appearance: Present: no acute distress, well-nourished - EENT Eyes: Present: PERRL, EOM intact - Neck Neck: Present: supple, normal ROM. Absent: masses or JVD - Respiratory Respiratory effort: normal Respiratory: bilateral: CTA, negative: rhonchi, wheezing - Cardiovascular Rhythm: regular Heart Sounds: Present: S1 & S2. Absent: systolic murmur - Extremities Extremities: no ischemia - Abdominal General gastrointestinal: soft, non-tender, non-distended, normal bowel sounds - Psychiatric Psychiatric: cooperative - Neurologic Neurologic: CNII-XII intact, no focal deficits Results - Labs CBC & Chem 7: 01/20/17 04:38 01/21/17 04:35 Labs: Laboratory Last Values WBC 6.5 K/mm3 (4.5-11.0) 01/20/17 04:38 RBC 5.59 M/mm3 (3.65-5.03) H 01/20/17 04:38 Hgb 15.3 gm/dl (11.8-15.2) H 01/20/17 04:38 Hct 46.8 % (35.5-45.6) H 01/20/17 04:38 MCV 84 fl (84-94) 01/20/17 04:38 MCH 28 pg (28-32) 01/20/17 04:38 MCHC 33 % (32-34) 01/20/17 04:38 RDW 14.3 % (13.2-15.2) 01/20/17 04:38 Plt Count 208 K/mm3 (140-440) 01/20/17 04:38 Lymph % (Auto) 8.8 % (13.4-35.0) L 01/19/17 04:08 [place] % (Auto) Campground [employer] 01/20/17 04:38 Eos % (Auto) 0.0 % (0.0-4.3) 01/19/17 04:08 Baso % (Auto) 0.2 % (0.0-1.8) 01/19/17 04:08 Lymph # 1.1 K/mm3 (1.2-5.4) L 01/19/17 04:08 [place] # 1.7 K/mm3 (0.0-0.8) H 01/19/17 04:08 Eos # 0.0 K/mm3 (0.0-0.4) 01/19/17 04:08 Baso # 0.0 K/mm3 (0.0-0.1) 01/19/17 04:08 Add Manual Diff Complete 01/20/17 04:38 Total Counted 100 01/20/17 04:38 Seg Neutrophils % 77.2 % (40.0-70.0) H 01/19/17 04:08 Seg Neuts % (Manual) 63.0 % (40.0-70.0) 01/20/17 04:38 Band Neutrophils % 2.0 % 01/20/17 04:38 Lymphocytes % (Manual) 18.0 % (13.4-35.0) 01/20/17 04:38 Reactive Lymphs % (Man) 0 % 01/20/17 04:38 Monocytes % (Manual) 14.0 % (0.0-7.3) H 01/20/17 04:38 Eosinophils % (Manual) 1.0 % (0.0-4.3) 01/20/17 04:38 Basophils % (Manual) 0 % (0.0-1.8) 01/20/17 04:38 Metamyelocytes % 2.0 % 01/20/17 04:38 Myelocytes % 0 % 01/20/17 04:38 Promyelocytes % 0 % 01/20/17 04:38 Blast Cells % 0 % 01/20/17 04:38 Nucleated RBC % Not Reportable 01/20/17 04:38 Seg Neutrophils # 9.6 K/mm3 (1.8-7.7) H 01/19/17 04:08 Seg Neutrophils # Man 4.1 K/mm3 (1.8-7.7) 01/20/17 04:38 Band Neutrophils # 0.1 K/mm3 01/20/17 04:38 Lymphocytes # (Manual) 1.2 K/mm3 (1.2-5.4) 01/20/17 04:38 Abs React Lymphs (Man) 0.0 K/mm3 01/20/17 04:38 Monocytes # (Manual) 0.9 K/mm3 (0.0-0.8) H 01/20/17 04:38 Eosinophils # (Manual) 0.1 K/mm3 (0.0-0.4) 01/20/17 04:38 Basophils # (Manual) 0.0 K/mm3 (0.0-0.1) 01/20/17 04:38 Metamyelocytes # 0.1 K/mm3 01/20/17 04:38 Myelocytes # 0.0 K/mm3 01/20/17 04:38 Promyelocytes # 0.0 K/mm3 01/20/17 04:38 Blast Cells # 0.0 K/mm3 01/20/17 04:38 WBC Morphology Not Reportable 01/20/17 04:38 Hypersegmented Neuts Not Reportable 01/20/17 04:38 Hyposegmented Neuts Not Reportable 01/20/17 04:38 Hypogranular Neuts Not Reportable 01/20/17 04:38 Smudge Cells Not Reportable 01/20/17 04:38 Toxic Granulation Not Reportable 01/20/17 04:38 Toxic Vacuolation Not Reportable 01/20/17 04:38 Dohle Bodies Not Reportable 01/20/17 04:38 Pelger-Huet Anomaly Not Reportable 01/20/17 04:38 Naima Rods Not Reportable 01/20/17 04:38 Platelet Estimate Appears normal 01/20/17 04:38 Clumped Platelets Not Reportable 01/20/17 04:38 Plt Clumps, EDTA Not Reportable 01/20/17 04:38 Large Platelets Not Reportable 01/20/17 04:38 Giant Platelets Not Reportable 01/20/17 04:38 Platelet Satelliting Not Reportable 01/20/17 04:38 Plt Morphology Comment Not Reportable 01/20/17 04:38 RBC Morphology Not Reportable 01/20/17 04:38 Dimorphic RBCs Not Reportable 01/20/17 04:38 Polychromasia Not Reportable 01/20/17 04:38 Hypochromasia 1+ 01/20/17 04:38 Poikilocytosis Not Reportable 01/20/17 04:38 Anisocytosis 1+ 01/20/17 04:38 Microcytosis Not Reportable 01/20/17 04:38 Macrocytosis Not Reportable 01/20/17 04:38 Spherocytes Not Reportable 01/20/17 04:38 Pappenheimer Bodies Not Reportable 01/20/17 04:38 Sickle Cells Not Reportable 01/20/17 04:38 Target Cells Not Reportable 01/20/17 04:38 Tear Drop Cells Not Reportable 01/20/17 04:38 Ovalocytes Not Reportable 01/20/17 04:38 Helmet Cells Not Reportable 01/20/17 04:38 [place] Bodies Not Reportable 01/20/17 04:38 Tichnor Rings Not Reportable 01/20/17 04:38 Hope Cells Not Reportable 01/20/17 04:38 Bite Cells Not Reportable 01/20/17 04:38 Crenated Cell Not Reportable 01/20/17 04:38 Elliptocytes Not Reportable 01/20/17 04:38 Acanthocytes (Spur) Not Reportable 01/20/17 04:38 Rouleaux Not Reportable 01/20/17 04:38 Hemoglobin C Crystals Not Reportable 01/20/17 04:38 Schistocytes Not Reportable 01/20/17 04:38 Malaria parasites Not Reportable 01/20/17 04:38 [place]ider Bodies Not Reportable 01/20/17 04:38 Hem Pathologist Commnt No 01/20/17 04:38 Sodium 135 mmol/L (137-145) L 01/20/17 04:38 Potassium 3.8 mmol/L (3.6-5.0) 01/20/17 04:38 Chloride 93.2 mmol/L (98-107) L 01/20/17 04:38 Carbon Dioxide 28 mmol/L (22-30) 01/20/17 04:38 Anion Gap 18 mmol/L 01/20/17 04:38 BUN 21 mg/dL (9-20) H 01/20/17 04:38 Creatinine 1.3 mg/dL (0.8-1.5) 01/20/17 04:38 Estimated GFR > 60 ml/min 01/20/17 04:38 BUN/Creatinine Ratio 16.15 % 01/20/17 04:38 Glucose 83 mg/dL (75-100) 01/20/17 04:38 POC Glucose 88 (70-105) 01/20/17 16:43 Hemoglobin A1c 5.5 % (4-6) 01/18/17 10:22 Calcium 9.4 mg/dL (8.4-10.2) 01/20/17 04:38 Phosphorus 3.30 mg/dL (2.5-4.5) 01/20/17 04:38 Magnesium 2.30 mg/dL (1.7-2.3) 01/20/17 04:38 Total Bilirubin 1.30 mg/dL (0.1-1.2) H 01/20/17 04:38 Direct Bilirubin 0.2 mg/dL (0-0.2) 01/18/17 10:22 Indirect Bilirubin 1.0 mg/dL 01/18/17 10:22 AST 30 units/L (5-40) 01/20/17 04:38 ALT 27 units/L (7-56) 01/20/17 04:38 Alkaline Phosphatase 45 units/L (35-129) 01/20/17 04:38 Total Creatine Kinase 1133 units/L (55-170) H 01/20/17 04:38 CK-MB (CK-2) 10.0 ng/mL (0.0-4.0) H 01/18/17 10:22 CK-MB (CK-2) Rel Index 1.0 (0-4) 01/18/17 10:22 Total Protein 7.4 g/dL (6.3-8.2) 01/20/17 04:38 Albumin 4.1 g/dL (3.9-5) 01/20/17 04:38 Albumin/Globulin Ratio 1.2 % 01/20/17 04:38 Lipase 44 units/L (13-60) 01/18/17 10:22 Urine Color Yeimi (Yellow) 01/18/17 20:05 Urine Turbidity Turbid (Clear) 01/18/17 20:05 Urine pH 5.0 (5.0-7.0) 01/18/17 20:05 Ur Specific [place] 1.023 (1.003-1.030) 01/18/17 20:05 Urine Protein >500 mg/dL (Negative) 01/18/17 20:05 Urine Glucose (UA) 50 mg/dL (Negative) 01/18/17 20:05 Urine Ketones Tr mg/dL (Negative) 01/18/17 20:05 Urine Blood Lg (Negative) 01/18/17 20:05 Urine Nitrite Neg (Negative) 01/18/17 20:05 Urine Bilirubin Neg (Negative) 01/18/17 20:05 Urine Urobilinogen 2.0 mg/dL (<2.0) 01/18/17 20:05 Ur Leukocyte Esterase Neg (Negative) 01/18/17 20:05 Urine WBC (Auto) 8.0 /HPF (0.0-6.0) H 01/18/17 20:05 Urine RBC (Auto) 2.0 /HPF (0.0-6.0) 01/18/17 20:05 Calcium Oxalate Crystal 2+ 01/18/17 20:05 Amorphous Crystals 1+ 01/18/17 20:05 Hyaline Casts 10 /LPF 01/18/17 20:05 Granular Casts 29 /LPF 01/18/17 20:05 Urine Mucus 3+ /HPF 01/18/17 20:05 Urine Opiates Screen Presumptive negative 01/18/17 20:05 Urine Methadone Screen Presumptive negative 01/18/17 20:05 Ur Barbiturates Screen Presumptive negative 01/18/17 20:05 Ur Phencyclidine Scrn Presumptive negative 01/18/17 20:05 Ur Amphetamines Screen Presumptive negative 01/18/17 20:05 U Benzodiazepines Scrn Presumptive negative 01/18/17 20:05 Urine Cocaine Screen Presumptive negative 01/18/17 20:05 U Marijuana (THC) Screen Presumptive positive 01/18/17 20:05 Drugs of Abuse Note Disclamer 01/18/17 20:05
[2017-01-20] MEDS: NACL 0.9% 1000 ML 1,000 ML IV SCH (22:47)
[2017-01-21 05:27] LABS: Anion Gap 17 mmol/L; BUN/Creatinine Ratio 16.66; Blood Urea Nitrogen 15 mg/dL (9-20); Calcium 9.3 mg/dL (8.4-10.2); Carbon Dioxide 26 mmol/L (22-30); Chloride 98.5 mmol/L (98-107); Creatine Kinase 517 units/L (55-170); Glucose 84 mg/dL (75-100); Sodium 137 mmol/L (137-145)
[2017-01-21] MEDS: NACL 0.9% 1000 ML 1,000 ML IV SCH (06:28)
[2017-01-21] MEDS: NOVOLOG SUB-Q SCH ×2 (08:16→14:10)
--- NOTE | 2017-01-21 09:50 | Discharge Summary ---
Providers - Providers Date of Admission: 01/18/17 19:30 Date of discharge: 01/21/17 Attending physician: PANCHITO MCWILLIAMS 01/18/17 19:35 Consult to Physician [CONS] Routine Consulting Provider: MARIAMA MCLEOD Reason For Exam: Acute renal failure Place consult to:: dr. 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 Diagnosed with acute renal failure with subsequent hypercalcemia, polycythemia, rhabdomyolysis secondary to dehydration due to volume depletion post multiple episodes of vomiting. Received aggressive IV hydration and resolved. Counseled regarding drug and tobacco use. Discharged in stable condition with PCP follow-up. Discharge diagnoses: 1. Acute renal failure 2. Hypercalcemia 3. Rhabdomyolysis 4. Polycythemia 5. Dehydration 6. Nausea and vomiting with volume depletion 7. Drug use - marijuana 8. Tobacco abuse Disposition: DC-01 TO HOME OR SELFCARE Time spent for discharge: 35 min Core Measure Documentation - Palliative Care Palliative Care/ Comfort Measures: Not Applicable - Core Measures Any of the following diagnoses?: none Exam - Physical Exam Narrative exam: Seen and examined: - Constitutional Vitals: Temp Pulse Resp BP Pulse Ox 98.1 F 63 18 123/63 98 01/21/17 04:00 01/21/17 04:00 01/21/17 04:00 01/21/17 04:00 01/21/17 04:00 General appearance: Present: no acute distress, well-nourished - EENT Eyes: Present: PERRL, EOM intact - Neck Neck: Present: supple, normal ROM. Absent: masses or JVD - Respiratory Respiratory effort: normal Respiratory: bilateral: CTA, negative: rhonchi, wheezing - Cardiovascular Rhythm: regular Heart Sounds: Present: S1 & S2. Absent: systolic murmur - Extremities Extremities: no ischemia - Abdominal General gastrointestinal: Present: soft, non-tender, non-distended, normal bowel sounds - Neurologic Neurologic: CNII-XII intact, no focal deficits Plan Activity: advance as tolerated Diet: low cholesterol, low salt Additional Instructions: Drink plenty of water Follow up with: PRIMARY CARE, [Primary Care Provider] - 3-5 Days
[2017-01-21] MEDS ORDERED: PEPCID PO SCH (10:00)
[2017-01-21] MEDS: HEPARIN SUB-Q SCH (10:36)
[2017-01-21 13:37] VITALS: BP 115/67
== END 2017-01-21 13:30 | disposition home or self-care (01) | DRG 684 ==
LOC: ED 09:53 → 3A 19:30
PROVIDERS: ADMIT Internal Medicine; ATTEND Internal Medicine
DX: N17.0 Acute kidney failure with tubular necrosis (principal); G89.29 Other chronic pain; M54.5 Low back pain; F17.210 Nicotine dependence, cigarettes, uncomplicated; N18.9 Chronic kidney disease, unspecified; D75.1 Secondary polycythemia; E83.52 Hypercalcemia
CPT/HCPCS: 36415; 71010; 76700; 76770; 80048; 80053; 80074; 80307; 81001; 82550; 82553; 82962; 83036; 83690; 83735; 84100; 85007; 85025; 96361; 96374; 96375; 96376; 99406; J1644; J2405; J7030